=== PATIENT | female | born 1950 | race Two or more races ===

== ENCOUNTER 2017-09-03 15:54 | Outpatient (CLI) | payer OTHER ==
[~2017-09-03 15:54] MED LIST: MOTRIN600 MG PO
== END 2017-09-03 17:00 | disposition home or self-care (01) ==
LOC: RAD 15:54
DX: M77.31 Calcaneal spur, right foot (principal)

== ENCOUNTER 2017-09-09 09:53 | Outpatient (CLI) | payer OTHER | END 2017-09-09 10:00 | disposition home or self-care (01) | LOC: NUCLEAR 09:53 | DX: I87.2 Venous insufficiency (chronic) (peripheral) (principal); I73.89 Other specified peripheral vascular diseases ==

== ENCOUNTER 2017-12-25 13:32 | Outpatient (CLI) | payer OTHER | END 2017-12-25 13:38 | disposition home or self-care (01) | LOC: RAD 13:32 | DX: M15.0 Primary generalized (osteo)arthritis (principal) ==

== ENCOUNTER 2018-01-01 11:36 | Outpatient (CLI) | payer OTHER | END 2018-01-01 11:40 | disposition home or self-care (01) | LOC: RAD 11:36 | DX: M79.672 Pain in left foot (principal); M25.572 Pain in left ankle and joints of left foot ==

== ENCOUNTER 2018-01-31 09:41 | Outpatient (CLI) | payer OTHER | END 2018-01-31 09:48 | disposition home or self-care (01) | LOC: RAD 09:41 | DX: C18.4 Malignant neoplasm of transverse colon (principal) ==

== ENCOUNTER → 2018-01-31 11:29 | Outpatient (CLI) | payer OTHER | END | disposition home or self-care (01) | LOC: LAB 11:29 | DX: N20.0 Calculus of kidney (principal); Z51.81 Encounter for therapeutic drug level monitoring ==

== ENCOUNTER 2018-02-03 10:42 | Outpatient (CLI) | payer OTHER | END 2018-02-03 10:44 | disposition home or self-care (01) | LOC: SONOGRAMA 10:42 | DX: C18.4 Malignant neoplasm of transverse colon (principal) ==

== ENCOUNTER 2018-02-04 09:48 | Outpatient (CLI) | payer OTHER | END 2018-02-04 13:49 | disposition home or self-care (01) | LOC: MRI 09:48 | DX: M76.822 Posterior tibial tendinitis, left leg (principal) | CPT/HCPCS: 73723; A9579 ==

== ENCOUNTER 2018-05-21 07:41 | Outpatient (CLI) | payer OTHER | END 2018-05-21 07:50 | disposition home or self-care (01) | LOC: TOM 07:41 | DX: Z85.038 Personal history of other malignant neoplasm of large intestine (principal); Z85.028 Personal history of other malignant neoplasm of stomach | CPT/HCPCS: 71260; 74177; Q9965 ==

== ENCOUNTER 2020-09-02 11:06 | Outpatient (CLI) | payer OTHER | END 2020-09-02 11:16 | disposition home or self-care (01) | LOC: RAD 11:06 | DX: M99.01 Segmental and somatic dysfunction of cervical region (principal); M99.02 Segmental and somatic dysfunction of thoracic region; M99.03 Segmental and somatic dysfunction of lumbar region; M99.05 Segmental and somatic dysfunction of pelvic region ==

== ENCOUNTER 2022-10-11 11:34 | Outpatient (CLI) | payer OTHER | END 2022-10-11 11:41 | disposition home or self-care (01) | LOC: TOM 11:34 | PROVIDERS: ATTEND Psychiatry & Neurology Clinical Neurophysiology | DX: G30.1 Alzheimer's disease with late onset (principal); F01.50 Vascular dementia, unspecified severity, without behavioral disturbance, psychotic disturbance, mood disturbance, and anxiety ==